=== PATIENT | male | born 1965 | race Native Hawaiian/Other Pacific Islander ===

== ENCOUNTER → 2016-11-18 16:08 | Outpatient (CLI) | payer OTHER | END | disposition home or self-care (01) | LOC: AMB 16:08 | DX: Z04.1 Encounter for examination and observation following transport accident (principal) ==

== ENCOUNTER 2018-10-27 12:21 | Observation (INO) | payer OTHER ==
[~2018-10-27] VITALS: Ht 167.6 cm; Wt 90.5 kg
[2018-10-27 13:19] LABS: PLATELET COUNT 263 K/uL (142-355)
[2018-10-27 14:25] LABS: POTASSIUM 3.8 mmol/L (3.6-5.2)
[2018-10-27] MEDS ORDERED: LIPITOR20 MG PO (17:42)
[2018-10-27] MEDS ORDERED: METFORMIN HCL500 M1 PO (17:43)
[2018-10-27] MEDS ORDERED: COZAAR100 MG PO (17:43)
[2018-10-27] MEDS ORDERED: AMLODIPINE BESYLATE PO (17:43)
[2018-10-27] MEDS ORDERED: METO50TA27 PO (17:44)
[2018-10-27] MEDS ORDERED: GLIM2TAB PO (17:45)
[2018-10-27] MEDS ORDERED: CLONIDINE HYDR0.2 MG PO (17:45)
[2018-10-27] MEDS ORDERED: LOSA50TA PO (17:46)
[2018-10-27] MEDS ORDERED: METOPRL/HCTZ1 TA1 PO (17:47)
[2018-10-27] MEDS ORDERED: INSU300I SC (17:57)
[2018-10-27 18:07] VITALS: BP 138/73; TEMP 97.7; Ht 167.6 cm; Wt 90.5 kg
[2018-10-27 20:00] VITALS: BP 135/66; TEMP 97.5
[2018-10-27 23:54] VITALS: BP 119/65; TEMP 98
[2018-10-28 04:00] VITALS: BP 115/55; TEMP 97.8
[2018-10-28 08:00] VITALS: BP 115/67; TEMP 97.5
[2018-10-28 12:00] VITALS: BP 121/68; TEMP 98.5
[2018-10-28 16:00] VITALS: BP 104/61; TEMP 97.4
== END 2018-10-28 17:10 | disposition home or self-care (01) ==
LOC: MED/SURG 12:21
PROVIDERS: ADMIT Family Medicine
PROC: 0H9LXZZ Drainage of Left Lower Leg Skin, External Approach (ICD-10-PCS; principal; 2018-10-27)
DX: L03.116 Cellulitis of left lower limb (principal); L02.415 Cutaneous abscess of right lower limb; E13.65 Other specified diabetes mellitus with hyperglycemia
CPT/HCPCS: 80053; 81000; 82550; 85027; 87040; 87070; 87077; 87185; 87186; 87205; 99220; G0378; G0379; J0696; J1815; J3490